=== PATIENT | male | born 1970 | race Two or more races ===

== ENCOUNTER 2018-09-10 11:25 | Emergency (ER) | payer SELFPAY ==
[~2018-09-10] VITALS: Ht 167.6 cm; Wt 77.1 kg
[2018-09-10 11:50] VITALS: BP 124/61
== END 2018-09-10 13:15 | disposition left against medical advice (07) ==
LOC: ER 11:25
DX: S01.01XD Laceration without foreign body of scalp, subsequent encounter (principal); X58.XXXD Exposure to other specified factors, subsequent encounter; Z53.21 Procedure and treatment not carried out due to patient leaving prior to being seen by health care provider